=== PATIENT | female | born 1990 | race Caucasian/White ===

== ENCOUNTER 2017-09-01 01:47 | Outpatient (CLI) | payer BC ==
[~2017-09-01] VITALS: Ht 165.1 cm; Wt 78.6 kg
[~2017-09-01 01:47] MED LIST: IBUP200T48 PO; OXYC-302 PO
[2017-09-01 03:28] LABS: AMNI OBC PASS; AMNISURE NEGATIVE (NEGATIVE)
== END 2017-09-01 05:38 | disposition home or self-care (01) ==
LOC: LDOP 01:47
PROVIDERS: ATTEND Obstetrics & Gynecology Maternal & Fetal Medicine
DX: O62.9 Abnormality of forces of labor, unspecified (principal); O99.283 Endocrine, nutritional and metabolic diseases complicating pregnancy, third trimester; E07.9 Disorder of thyroid, unspecified; Z3A.38 38 weeks gestation of pregnancy
CPT/HCPCS: 59025; 84112; 89060; 99211; G0463; Q0114

== ENCOUNTER 2017-09-07 06:26 | Inpatient (IN) | payer BC ==
[~2017-09-07] VITALS: Ht 165.1 cm; Wt 79.0 kg
[2017-09-07] MEDS ORDERED: OXYTOCIN 30U/ 0.9% NaCL 500ML 500 ML IV ONE (06:27)
[2017-09-07] MEDS ORDERED: D5%-LACTATED RINGERS 1,000 ML IV SCH (06:27)
[2017-09-07] MEDS: LACTATED RINGERS 1,000 ML IV SCH ×2 (06:29→15:09)
[2017-09-07] MEDS ORDERED: TERBUTALINE 1 MG/ML, 1ML IVPush PRN (06:30)
[2017-09-07] MEDS ORDERED: CALCIUM CARBONATE 500 MG TAB.CHEW PO PRN ×2 (06:30→16:30)
[2017-09-07] MEDS ORDERED: FENTANYL PF 100 MCG/2ML IV PRN (06:30)
[2017-09-07] MEDS ORDERED: ONDANSETRON 2MG/ML, 2ML IVPush PRN (06:30)
[2017-09-07] MEDS ORDERED: LIDOCAINE 1%, 20ML ONE (06:42)
[2017-09-07] MEDS ORDERED: OXYTOCIN 30U/ 0.9% NaCL 500ML 500 ML ONE ×2 (06:42→16:35)
[2017-09-07] MEDS ORDERED: MISOPROSTOL 200 MCG TABLET ONE (06:43)
[2017-09-07 06:48] LABS: HEMATOCRIT 36.6 % (34.6-47.8); HEMOGLOBIN 11.8 g/dL (11.7-16.4); WHITE BLOOD COUNT 8.2 x10^3/uL (3.4-10)
[2017-09-07] MEDS ORDERED: FENTANYL PF 100 MCG/2ML ONE ×3 (13:23→15:30)
[2017-09-07] MEDS: FENTANYL PF 100 MCG/2ML IVPush PRN ×2 (14:20→15:38)
[2017-09-07] MEDS ORDERED: FENTANYL/BUPIV./NS/PF 250 ML EPIDCONT ONE (15:17)
[2017-09-07] MEDS ORDERED: OXYTOCIN 30U/ 0.9% NaCL 500ML 500 ML IV SCH (16:15)
[2017-09-07] MEDS ORDERED: MEASLES,MUMPS&RUBELLA VACC/PF 0.5 ML SQ PRN (16:30)
[2017-09-07] MEDS ORDERED: MISOPROSTOL 200 MCG TABLET PR PRN (16:30)
[2017-09-07] MEDS ORDERED: DOCUSATE 100 MG CAPSULE PO PRN (16:30)
[2017-09-07] MEDS ORDERED: MAGNESIUM HYDROXIDE 8%, 30ML UDC PO PRN (16:30)
[2017-09-07] MEDS ORDERED: RHOGAM FROM BLOOD BANK 1 NOTE EA IM/IV ONE (16:30)
[2017-09-07] MEDS ORDERED: OXYcodone IR 5MG TABLET PO PRN (16:30)
[2017-09-07] MEDS ORDERED: DIPH,PERTUSS(ACELL),TET VAC/PF NC IM-VACC PRN (16:30)
[2017-09-07] MEDS ORDERED: ONDANSETRON 2MG/ML, 2ML IV PRN (16:30)
[2017-09-07] MEDS ORDERED: IBUPROFEN 600 MG TABLET ONE (16:41)
[2017-09-07] MEDS ORDERED: OXYcodone/APAP 5/325MG TABLET ONE (16:42)
[2017-09-07] MEDS: OXYcodone/APAP 5/325MG TABLET PO PRN (16:44)
[2017-09-07] MEDS: IBUPROFEN 600 MG TABLET PO PRN (16:44)
[2017-09-07 17:35] VITALS: BP 105/66
[2017-09-07 20:18] VITALS: BP 110/70
[2017-09-07 23:28] VITALS: BP 99/61
[2017-09-08] MEDS: OXYcodone/APAP 5/325MG TABLET PO PRN ×3 (02:35→15:23)
[2017-09-08] MEDS: IBUPROFEN 600 MG TABLET PO PRN ×3 (02:35→15:23)
[2017-09-08 03:40] VITALS: BP 101/63
[2017-09-08 07:35] LABS: HEMATOCRIT 35.3 % (34.6-47.8); HEMOGLOBIN 11.4 g/dL (11.7-16.4); WHITE BLOOD COUNT 10.4 x10^3/uL (3.4-10)
[2017-09-08 08:30] VITALS: BP 101/54
[2017-09-08] MEDS ORDERED: PRENATAL VIT/IRON/FA 1 EACH TABLET PO SCH (09:00)
[2017-09-08] MEDS ORDERED: IBUP-1222 PO (12:14)
[2017-09-08] MEDS ORDERED: OXYC-302 PO (12:14)
== END 2017-09-08 16:25 | disposition home or self-care (01) | DRG 775 ==
LOC: LDIP 06:26 → 2NW 17:27
PROVIDERS: ADMIT Obstetrics & Gynecology Maternal & Fetal Medicine; ATTEND Obstetrics & Gynecology Maternal & Fetal Medicine
PROC: 10E0XZZ Delivery of Products of Conception, External Approach (ICD-10-PCS; principal; 2017-09-07)
PROC: 0KQM0ZZ Repair Perineum Muscle, Open Approach (ICD-10-PCS; 2017-09-07)
PROC: 10907ZC Drainage of Amniotic Fluid, Therapeutic from Products of Conception, Via Natural or Artificial Opening (ICD-10-PCS; 2017-09-07)
DX: O34.211 Maternal care for low transverse scar from previous cesarean delivery (principal); Z37.0 Single live birth; Z3A.38 38 weeks gestation of pregnancy
CPT/HCPCS: 36415; 82803; 85025; 86850; 86900; J3010; J7120